=== PATIENT | male | born 1980 | race Caucasian/White ===

== ENCOUNTER → 2018-06-10 | Outpatient (CLI) | payer OTHER | LOC: LAB SRC 07:00 → LAB SHORT 07:00 | DX: Z11.8 Encounter for screening for other infectious and parasitic diseases (principal) | CPT/HCPCS: 87177; 87209 ==

== ENCOUNTER → 2018-06-13 | Outpatient (CLI) | payer OTHER | LOC: LAB SRC 17:20 → LAB SHORT 17:20 | DX: Z11.8 Encounter for screening for other infectious and parasitic diseases (principal) | CPT/HCPCS: 87177; 87209 ==

== ENCOUNTER → 2018-06-16 | Outpatient (CLI) | payer OTHER | LOC: LAB SHORT 07:45 → LAB SRC 07:45 → LAB FUT 06-09 11:30 | DX: Z11.8 Encounter for screening for other infectious and parasitic diseases (principal) | CPT/HCPCS: 87177; 87209 ==